=== PATIENT | male | born 1960 | race African-American/Black ===

== ENCOUNTER 2021-03-05 17:47 | Emergency (ER) | payer SELFPAY ==
[~2021-03-05] VITALS: Ht 182.9 cm; Wt 91.0 kg
[2021-03-06] MEDS ORDERED: IBUP-2029 MT (01:14)
[2021-03-06] MEDS ORDERED: IBUPROFEN 600MG TABLET PO ONE (01:15)
[2021-03-06 01:58] VITALS: BP 124/89
== END 2021-03-06 02:28 | disposition home or self-care (01) ==
LOC: ER 17:47
DX: M79.674 Pain in right toe(s) (principal); E11.9 Type 2 diabetes mellitus without complications; J44.1 Chronic obstructive pulmonary disease with (acute) exacerbation; I11.0 Hypertensive heart disease with heart failure; I50.9 Heart failure, unspecified
CPT/HCPCS: 93005; 99283

== ENCOUNTER 2023-02-16 11:22 | Inpatient (IN) | payer OTHER ==
[~2023-02-16] VITALS: Ht 175.3 cm; Wt 68.1 kg
[~2023-02-16 11:22] MED LIST: IBUP-2029 MT
[2023-02-16] MEDS ORDERED: ALBUTEROL (0.083%) 2.5MG/3ML NEB HHN ONE (12:15)
[2023-02-16] MEDS ORDERED: METHYLPREDNISOLONE SOD SUCC 125MG/2ML (ACT-O-VIAL) IV ONE (12:15)
[2023-02-16] MEDS ORDERED: IPRATROPIUM/ALBUTEROL 0.5-3(2.5)MG/3ML NEB HHN ONE (12:15)
[2023-02-16 12:49] LABS: BASOPHILS % 2.1 % (0.0-2.0); DIFFERENTIAL COMMENT 0; EOSINOPHILS % 1.2 % (0.0-5.0); MEAN CORPUSCULAR HEMOGLOBIN 27.8 pg (28.0-32.0); MEAN CORPUSCULAR HGB CONC 27.3 g/dL (31.0-37.0); MEAN CORPUSCULAR VOLUME 101.9 fL (80.0-94.0); MEAN PLATELET VOLUME 7.4 fl (7.4-10.4); MONOCYTES % 10.6 % (2.0-8.0); NEUTROPHILS % 70.1 % (40.0-76.0); PLATELET 321 x1000/uL (130-400); RED BLOOD CELL COUNT 1.33 mill/uL (4.7-6.1); RED CELL DISTRIBUTION WIDTH 20.2 % (11.6-14.6)
[2023-02-16 12:56] LABS: HEMATOCRIT. 13.6 % (42.0-52.0)
[2023-02-16 13:00] LABS: INR 1.2; PROTHROMBIN TIME 12.3 sec (9.6-11.0)
[2023-02-16] MEDS ORDERED: PIPERACILLIN/TAZ 3.375G PREMIX 50 ML IV ONE (13:00)
[2023-02-16 13:04] LABS: HEMOGLOBIN. 3.7 g/dL (14.0-18.0)
[2023-02-16 13:14] LABS: ALANINE AMINOTRANSFERASE 13 IU/L (10-49); ALBUMIN 3.4 g/dL (3.2-4.8); ASPARTATE AMINOTRANSFERASE 19 IU/L (<34); BILIRUBIN TOTAL < 0.2 mg/dL (0.1-1.0); CALCIUM 8.5 mg/dL (8.7-10.4); CARBON DIOXIDE 19 mEq/L (21-32); CHLORIDE 108 mEq/L (98-107); CREATININE 3.2 mg/dL (0.6-1.3); GLUCOSE 200 mg/dL (70-105); POTASSIUM 5.7 mEq/L (3.5-5.1); PROTEIN TOTAL 5.5 g/dL (6.0-8.3); SODIUM 137 mEq/L (136-145)
[2023-02-16 13:23] LABS: UREA NITROGEN BLOOD 104 mg/dL (9-23)
[2023-02-16 13:24] LABS: TROPONIN I HIGH SENSITIVITY 113 ng/L (3.0-53)
[2023-02-16] MEDS ORDERED: INSULIN REGULAR (HUMULIN R) 300UNITS/3ML VIAL IV ONE (13:45)
[2023-02-16] MEDS ORDERED: CALCIUM GLUCONATE 100MG/ML 10ML VIAL IV ONE (13:45)
[2023-02-16] MEDS ORDERED: DEXTROSE 50% WATER 50ML SYRINGE IV ONE (13:45)
[2023-02-16] MEDS ORDERED: SODIUM POLYSTYRENE SULFONATE 15 G/60 ML BOT PO ONE (13:45)
[2023-02-16] MEDS ORDERED: PIPERACILLIN/TAZ 3.375G PREMIX 50 ML IV NR (14:22)
[2023-02-16] MEDS ORDERED: METHYLPREDNISOLONE SOD SUCC 125MG/2ML (ACT-O-VIAL) IV NR (14:22)
[2023-02-16 15:18] LABS: LACTIC ACID 3.6 mmol/L (0.4-2.0)
[2023-02-16] MEDS ORDERED: GABAPENTIN 300MG CAPSULE PO ONE (15:45)
[2023-02-16] MEDS ORDERED: ACETAMINOPHEN 325MG TABLET PO ONE (15:45)
[2023-02-16] MEDS ORDERED: GABAPENTIN 300MG CAPSULE PO NR (16:15)
[2023-02-16] MEDS ORDERED: GABAPENTIN 100MG CAPSULE PO NR ×2 (16:15)
[2023-02-16] MEDS ORDERED: GABAPENTIN 400MG CAPSULE PO NR (16:15)
[2023-02-16 19:03] LABS: TROPONIN I HIGH SENSITIVITY 117 ng/L (3.0-53)
[2023-02-16] MEDS ORDERED: IPRATROPIUM/ALBUTEROL 0.5-3(2.5)MG/3ML NEB HHN PRN (23:34)
[2023-02-17] VITALS (33 sets, daily range): BP systolic 118–160; BP diastolic 84–122; PULSE 96–106; RESP 11–25; TEMP 97.3–97.7; O2SAT 100
[2023-02-17 03:12] LABS: HEMOGLOBIN. 7.7 g/dL (14.0-18.0); MEAN CORPUSCULAR HEMOGLOBIN 30.1 pg (28.0-32.0); MEAN CORPUSCULAR HGB CONC 30.9 g/dL (31.0-37.0); MEAN CORPUSCULAR VOLUME 97.3 fL (80.0-94.0); MEAN PLATELET VOLUME 8.1 fl (7.4-10.4); PLATELET 178 x1000/uL (130-400); RED BLOOD CELL COUNT 2.57 mill/uL (4.7-6.1); RED CELL DISTRIBUTION WIDTH 16.5 % (11.6-14.6); WHITE BLOOD COUNT 4.2 x1000/uL (4.5-11.0)
[2023-02-17 03:26] LABS: ALANINE AMINOTRANSFERASE 16 IU/L (10-49); ALBUMIN 3.4 g/dL (3.2-4.8); ASPARTATE AMINOTRANSFERASE 28 IU/L (<34); BILIRUBIN TOTAL 0.4 mg/dL (0.1-1.0); CALCIUM 8.5 mg/dL (8.7-10.4); CARBON DIOXIDE 15 mEq/L (21-32); CHLORIDE 110 mEq/L (98-107); CREATININE 3.4 mg/dL (0.6-1.3); GLUCOSE 257 mg/dL (70-105); PROTEIN TOTAL 5.6 g/dL (6.0-8.3); SODIUM 136 mEq/L (136-145)
[2023-02-17 03:28] LABS: DIFFERENTIAL COMMENT 1
[2023-02-17 03:31] LABS: POTASSIUM 6.9 mEq/L (3.5-5.1); UREA NITROGEN BLOOD 112 mg/dL (9-23)
[2023-02-17 04:34] LABS: PLATELET ESTIMATE NORMAL
[2023-02-17] MEDS ORDERED: SODIUM BICARBONATE 8.4% 1 MEQ/ML 50ML SYR IV NR ×2 (05:00→11:25)
[2023-02-17] MEDS ORDERED: SODIUM POLYSTYRENE SULFONATE 15 G/60 ML BOT PO NR ×2 (05:00→11:30)
[2023-02-17] MEDS ORDERED: DEXTROSE 50% WATER 50ML SYRINGE IV NR ×2 (05:00→11:25)
[2023-02-17] MEDS ORDERED: INSULIN REGULAR (HUMULIN R) 300UNITS/3ML VIAL IV NR ×2 (05:00→11:25)
[2023-02-17 08:04] LABS: BG BASE EXCESS -12.9 mmol/L (-2.0-2.0); BG DEOXYHEMOGLOBIN 3.9 % (0.0-5.0); BG FRACTION INSPIRED OXYGEN 36; BG HCO3 ACT 12.1 mmol/L (22.0-26.0); BG METHEMOGLOBIN 0.3 % (0.0-1.5); BG OXYHEMOGLOBIN 94.8 % (94.0-97.0); BG PCO2 24.7 mmHg (35.0-45.0); BG PH 7.308 (7.350-7.450); BG PO2 88.8 mmHg (75.0-100.0); BG SAMPLE SITE RIGHT RADIAL; BG TOTAL HEMOGLOBIN 7.7 g/dL (12.0-18.0); BG VENT MODE NASAL CANNULA
[2023-02-17] MEDS: FUROSEMIDE 40MG/4ML VIAL IVP SCH ×2 (09:12→16:32)
[2023-02-17 09:33] LABS: HEMOGLOBIN. 8.2 g/dL (14.0-18.0); MEAN CORPUSCULAR HGB CONC 31.6 g/dL (31.0-37.0); PLATELET 311 x1000/uL (130-400); RED BLOOD CELL COUNT 2.74 mill/uL (4.7-6.1); RED CELL DISTRIBUTION WIDTH 16.4 % (11.6-14.6); WHITE BLOOD COUNT 6.6 x1000/uL (4.5-11.0)
[2023-02-17 09:36] LABS: DIFFERENTIAL COMMENT 1
[2023-02-17 09:41] LABS: CALCIUM 8.6 mg/dL (8.7-10.4); CREATININE 3.5 mg/dL (0.6-1.3)
[2023-02-17] MEDS ORDERED: NALOXONE HCL 0.4MG/ML VIAL IV PRN (09:45)
[2023-02-17 10:11] LABS: POTASSIUM 6.2 mEq/L (3.5-5.1)
[2023-02-17] MEDS ORDERED: IPRATROPIUM/ALBUTEROL 0.5-3(2.5)MG/3ML NEB HHN PRN (10:45)
[2023-02-17] MEDS ORDERED: ONDANSETRON HCL 4MG/2ML INJ IV PRN (10:45)
[2023-02-17] MEDS ORDERED: ACETAMINOPHEN 325MG TABLET PO PRN ×2 (10:45)
[2023-02-17] MEDS ORDERED: DOCUSATE SODIUM 100MG CAPSULE PO PRN (10:45)
[2023-02-17] MEDS: HYDROCODONE/ACETAMINOPHEN 10/325MG TABLET PO PRN (11:05)
[2023-02-17] MEDS ORDERED: LIDOCAINE HCL 1% 10 MG/ML 10ML VIAL ONE (11:17)
[2023-02-17 12:02] LABS: KETONES URINE NEGATIVE (NEGATIVE)
[2023-02-17] MEDS ORDERED: AMLODIPINE 5MG TABLET PO NR (12:30)
[2023-02-17 13:46] LABS: *AMPHETAMINES SCREEN URINE NEGATIVE (NEGATIVE); *BARBITURATES SCREEN URINE NEGATIVE (NEGATIVE); *BENZODIAZEPINES SCREEN URINE NEGATIVE (NEGATIVE); *COCAINE SCREEN URINE PRESUMPTIVE POSITIVE (NEGATIVE); ECSTASY MDMA SCREEN URINE NEGATIVE (NEGATIVE); METHADONE URINE SCREEN Neg (NEGATIVE); OPIATES URINE SCREEN NEGATIVE (NEGATIVE); PHENCYCLIDINE URINE SCREEN NEGATIVE (NEGATIVE)
[2023-02-17 14:19] LABS: CLARITY URINE CLEAR (CLEAR); COLOR URINE YELLOW (YELLOW); PROTEIN URINE 2+ (NEGATIVE)
[2023-02-17 14:20] LABS: GLUCOSE URINE NEGATIVE (NEGATIVE); NITRITE URINE NEGATIVE (NEGATIVE); OCCULT BLOOD URINE 1+ (NEGATIVE); PH URINE 5.5 (4.5-8.0); SPECIFIC GRAVITY URINE 1.015 (1.005-1.030)
[2023-02-17 14:21] LABS: LEUKOCYTE ESTERASE URINE NEGATIVE (NEGATIVE); UROBILINOGEN URINE 0.2 E.U./dL (0.2-1.0)
[2023-02-17 14:23] LABS: BACTERIA URINE RARE; RBC URINE 0-2 /hpf (0-2); SQUAMOUS EPITHELIAL CELL URINE RARE /lpf (RARE/1+); YEAST URINE NONE SEEN
[2023-02-17 17:19] LABS: PLATELET ESTIMATE NORMAL
[2023-02-17 19:53] LABS: HEPATITIS A AB IGM NEGATIVE (Negative); HEPATITIS B SURFACE ANTIGEN NEGATIVE (Negative); HEPATITIS C AB NON REACTIVE (Neg) (Negative)
[2023-02-17] MEDS: AMLODIPINE 5MG TABLET PO SCH (21:08)
[2023-02-17] MEDS ORDERED: DEXTROSE 50% WATER 50ML SYRINGE IV PRN (23:00)
[2023-02-17] MEDS ORDERED: VANCOMYCIN 1G PREMIX 200 ML IV NR (23:30)
[2023-02-17] MEDS: PANTOPRAZOLE SODIUM 40 MG/VIAL IV SCH (23:36)
[2023-02-17] MEDS: DIPHENHYDRAMINE 25MG CAPSULE PO PRN (23:36)
[2023-02-18] VITALS (66 sets, daily range): BP systolic 103–147; BP diastolic 73–110; PULSE 81–104; RESP 9–28; TEMP 95.6–98.2; O2SAT 100
[2023-02-18 00:51] LABS: FERRITIN 163 ng/mL (22-322); FOLIC ACID (FOLATE) SERUM 10.36 ng/mL (>5.38); VITAMIN B12 SERUM 744 pg/mL (211-911)
[2023-02-18] MEDS: PIPERACILLIN/TAZOBACTAM 3.375 G in DEXTROSE 5% WATER 50 ML IV SCH ×3 (00:52→21:11)
[2023-02-18 01:58] LABS: IRON 28 ug/dL (65-175); LACTATE DEHYDROGENASE 325 IU/L (120-246); TOTAL IRON BINDING CAPACITY 269 ug/dl (250-425)
[2023-02-18] MEDS: HYDROCODONE/ACETAMINOPHEN 10/325MG TABLET PO PRN ×3 (03:16→23:27)
[2023-02-18 06:08] LABS: HEMATOCRIT. 22.2 % (42.0-52.0); HEMOGLOBIN. 7.1 g/dL (14.0-18.0); MEAN CORPUSCULAR HEMOGLOBIN 30.3 pg (28.0-32.0); MEAN CORPUSCULAR VOLUME 94.7 fL (80.0-94.0); PLATELET 237 x1000/uL (130-400); RED BLOOD CELL COUNT 2.34 mill/uL (4.7-6.1); RED CELL DISTRIBUTION WIDTH 17.1 % (11.6-14.6)
[2023-02-18 06:33] LABS: ALANINE AMINOTRANSFERASE 17 IU/L (10-49); ALBUMIN 2.9 g/dL (3.2-4.8); ASPARTATE AMINOTRANSFERASE 23 IU/L (<34); BILIRUBIN TOTAL 0.2 mg/dL (0.1-1.0); CALCIUM 7.7 mg/dL (8.7-10.4); CARBON DIOXIDE 29 mEq/L (21-32); CHLORIDE 107 mEq/L (98-107); CREATININE 2.5 mg/dL (0.6-1.3); GLUCOSE 147 mg/dL (70-105); PHOSPHORUS 4.6 mg/dL (2.5-4.9); POTASSIUM 4.5 mEq/L (3.5-5.1); PROTEIN TOTAL 5.5 g/dL (6.0-8.3); SODIUM 143 mEq/L (136-145); UREA NITROGEN BLOOD 66 mg/dL (9-23)
[2023-02-18 07:23] LABS: DIFFERENTIAL COMMENT 1
[2023-02-18] MEDS: BLOOD SUGAR DIAGNOSTIC STRIP TEST SCH ×4 (07:50→21:14)
[2023-02-18] MEDS: INSULIN LISPRO 100 UNITS/ML SUBCUT SCH ×4 (08:20→21:00)
[2023-02-18] MEDS: BUDESONIDE 0.5MG/2ML NEB HHN SCH ×2 (08:57→21:10)
[2023-02-18] MEDS: IPRATROPIUM/ALBUTEROL 0.5-3(2.5)MG/3ML NEB HHN SCH ×4 (08:58→21:10)
[2023-02-18] MEDS: AMLODIPINE 5MG TABLET PO SCH ×2 (09:00→21:00)
[2023-02-18] MEDS: PANTOPRAZOLE SODIUM 40 MG/VIAL IV SCH ×2 (09:00→17:51)
[2023-02-18] MEDS: FUROSEMIDE 40MG/4ML VIAL IVP SCH ×2 (09:00→17:43)
[2023-02-18 09:13] LABS: TROPONIN I HIGH SENSITIVITY 185 ng/L (3.0-53)
[2023-02-18] MEDS: CLONIDINE 0.1MG TABLET PO PRN (09:30)
[2023-02-18] MEDS ORDERED: IRON SUCROSE COMPLEX 100 MG/5 ML ML IV NR (12:00)
[2023-02-18] MEDS: NITROGLYCERIN OINT 1GM/INCH UDPKT TD SCH ×2 (17:43→21:00)
[2023-02-18 17:57] LABS: PLATELET ESTIMATE NORMAL
[2023-02-18 17:58] LABS: ANISOCYTOSIS 1+
[2023-02-19] VITALS (12 sets, daily range): BP systolic 115–132; BP diastolic 69–93; PULSE 87–104; RESP 11–20; TEMP 97.8–98.6; O2SAT 99
[2023-02-19] MEDS: BUDESONIDE 0.5MG/2ML NEB HHN SCH ×3 (00:28→21:15)
[2023-02-19] MEDS: IPRATROPIUM/ALBUTEROL 0.5-3(2.5)MG/3ML NEB HHN SCH ×4 (01:24→21:15)
[2023-02-19] MEDS: BLOOD SUGAR DIAGNOSTIC STRIP TEST SCH ×4 (06:44→21:26)
[2023-02-19] MEDS: NITROGLYCERIN OINT 1GM/INCH UDPKT TD SCH ×3 (06:51→21:33)
[2023-02-19 08:04] LABS: CALCIUM 7.2 mg/dL (8.7-10.4); CARBON DIOXIDE 29 mEq/L (21-32); CHLORIDE 107 mEq/L (98-107); CREATININE 3.2 mg/dL (0.6-1.3); GLUCOSE 154 mg/dL (70-105); PHOSPHORUS 4.4 mg/dL (2.5-4.9); POTASSIUM 4.3 mEq/L (3.5-5.1); SODIUM 144 mEq/L (136-145); UREA NITROGEN BLOOD 66 mg/dL (9-23)
[2023-02-19] MEDS: PANTOPRAZOLE SODIUM 40 MG/VIAL IV SCH ×2 (08:41→17:19)
[2023-02-19] MEDS: FUROSEMIDE 40MG/4ML VIAL IVP SCH ×2 (08:41→17:19)
[2023-02-19 08:44] LABS: BASOPHILS % 0.7 % (0.0-2.0); DIFFERENTIAL COMMENT 0; EOSINOPHILS % 0.7 % (0.0-5.0); LYMPHOCYTES % 14.2 % (20.0-50.0); MEAN CORPUSCULAR HGB CONC 32.6 g/dL (31.0-37.0); MEAN CORPUSCULAR VOLUME 92.2 fL (80.0-94.0); MEAN PLATELET VOLUME 8.2 fl (7.4-10.4); MONOCYTES % 12.2 % (2.0-8.0); NEUTROPHILS % 72.2 % (40.0-76.0); PLATELET 205 x1000/uL (130-400); RED BLOOD CELL COUNT 1.99 mill/uL (4.7-6.1); RED CELL DISTRIBUTION WIDTH 16.9 % (11.6-14.6); WHITE BLOOD COUNT 6.7 x1000/uL (4.5-11.0)
[2023-02-19] MEDS: INSULIN LISPRO 100 UNITS/ML SUBCUT SCH ×4 (08:46→21:28)
[2023-02-19 08:48] LABS: HEMATOCRIT. 18.4 % (42.0-52.0)
[2023-02-19] MEDS: HYDROCODONE/ACETAMINOPHEN 10/325MG TABLET PO PRN ×2 (09:08→20:55)
[2023-02-19] MEDS: AMLODIPINE 5MG TABLET PO SCH ×2 (09:09→20:54)
[2023-02-19] MEDS ORDERED: VANCOMYCIN 500MG PREMIX 100 ML IV NR (13:00)
[2023-02-19 17:16] LABS: HEMATOCRIT 23.9 % (42.0-52.0); HEMOGLOBIN 7.5 g/dL (14.0-18.0)
[2023-02-19] MEDS: FERROUS SULFATE 325MG TABLET PO SCH (17:19)
[2023-02-19] MEDS: ASCORBIC ACID 500 MG TABLET PO SCH (17:19)
[2023-02-19] MEDS: DIPHENHYDRAMINE 25MG CAPSULE PO PRN (21:34)
[2023-02-20] VITALS: BP 127/83; PULSE 88; RESP 10; TEMP 97.8
[2023-02-20 04:00] VITALS: BP 117/77; PULSE 95; RESP 18; TEMP 98
[2023-02-20] MEDS: NITROGLYCERIN OINT 1GM/INCH UDPKT TD SCH ×3 (06:22→23:13)
[2023-02-20] MEDS: BLOOD SUGAR DIAGNOSTIC STRIP TEST SCH ×2 (06:25→11:50)
[2023-02-20] MEDS: INSULIN LISPRO 100 UNITS/ML SUBCUT SCH ×2 (06:25→12:20)
[2023-02-20 08:00] VITALS: BP 131/98; PULSE 100; RESP 20; TEMP 98.6
[2023-02-20] MEDS: IPRATROPIUM/ALBUTEROL 0.5-3(2.5)MG/3ML NEB HHN SCH ×3 (08:46→12:00)
[2023-02-20] MEDS: BUDESONIDE 0.5MG/2ML NEB HHN SCH (08:47)
[2023-02-20 08:48] VITALS: PULSE 98; RESP 24; O2SAT 95
[2023-02-20] MEDS: FUROSEMIDE 40MG/4ML VIAL IVP SCH ×2 (09:38→17:16)
[2023-02-20] MEDS: PANTOPRAZOLE SODIUM 40 MG/VIAL IV SCH ×2 (09:38→17:16)
[2023-02-20] MEDS: ASCORBIC ACID 500 MG TABLET PO SCH ×2 (09:39→17:16)
[2023-02-20] MEDS: AMLODIPINE 5MG TABLET PO SCH ×2 (09:39→20:35)
[2023-02-20] MEDS: FERROUS SULFATE 325MG TABLET PO SCH ×2 (09:39→17:21)
[2023-02-20] MEDS: DIPHENHYDRAMINE 25MG CAPSULE PO PRN ×2 (09:55→17:22)
[2023-02-20] MEDS: HYDROCODONE/ACETAMINOPHEN 10/325MG TABLET PO PRN ×2 (09:55→17:20)
[2023-02-20 11:11] LABS: BASOPHILS % 0.9 % (0.0-2.0); EOSINOPHILS % 1.8 % (0.0-5.0); HEMATOCRIT. 25.6 % (42.0-52.0); HEMOGLOBIN. 7.8 g/dL (14.0-18.0); LYMPHOCYTES % 9.6 % (20.0-50.0); MEAN CORPUSCULAR HEMOGLOBIN 28.9 pg (28.0-32.0); MEAN CORPUSCULAR HGB CONC 30.5 g/dL (31.0-37.0); MEAN CORPUSCULAR VOLUME 94.9 fL (80.0-94.0); MEAN PLATELET VOLUME 8.1 fl (7.4-10.4); NEUTROPHILS % 79.7 % (40.0-76.0); PLATELET 223 x1000/uL (130-400); WHITE BLOOD COUNT 7.9 x1000/uL (4.5-11.0)
[2023-02-20 11:39] LABS: CREATININE 3.3 mg/dL (0.6-1.3); POTASSIUM 3.9 mEq/L (3.5-5.1)
[2023-02-20 12:00] VITALS: BP 129/112; PULSE 99; RESP 14; TEMP 98.2
[2023-02-20 16:00] VITALS: BP 128/89; PULSE 101; RESP 12; TEMP 98.2
[2023-02-20] MEDS: HYDROXYZINE 25MG TABLET PO PRN (20:36)
[2023-02-21 04:00] VITALS: BP 128/102; PULSE 63; RESP 16; TEMP 98.2
[2023-02-21] MEDS: NITROGLYCERIN OINT 1GM/INCH UDPKT TD SCH ×3 (06:44→23:03)
[2023-02-21 08:00] VITALS: BP 139/95; PULSE 104; TEMP 98.5
[2023-02-21] MEDS: ASCORBIC ACID 500 MG TABLET PO SCH ×2 (08:40→16:20)
[2023-02-21] MEDS: PANTOPRAZOLE SODIUM 40 MG/VIAL IV SCH ×2 (08:41→16:20)
[2023-02-21] MEDS: AMLODIPINE 5MG TABLET PO SCH ×2 (08:41→20:28)
[2023-02-21] MEDS: FERROUS SULFATE 325MG TABLET PO SCH ×2 (08:41→16:20)
[2023-02-21] MEDS: FUROSEMIDE 40MG/4ML VIAL IVP SCH ×2 (08:41→16:21)
[2023-02-21] MEDS: HYDROCODONE/ACETAMINOPHEN 10/325MG TABLET PO PRN ×2 (08:53→23:33)
[2023-02-21] MEDS: HYDROXYZINE 25MG TABLET PO PRN (08:53)
[2023-02-21] MEDS: IPRATROPIUM/ALBUTEROL 0.5-3(2.5)MG/3ML NEB HHN SCH ×3 (09:26→18:00)
[2023-02-21 12:00] VITALS: BP 138/95; PULSE 103; RESP 18; TEMP 97.5
[2023-02-21 12:01] LABS: BASOPHILS % 0.8 % (0.0-2.0); EOSINOPHILS % 2.5 % (0.0-5.0); HEMATOCRIT. 27.5 % (42.0-52.0); HEMOGLOBIN. 8.7 g/dL (14.0-18.0); LYMPHOCYTES % 10.8 % (20.0-50.0); MEAN CORPUSCULAR HEMOGLOBIN 29.3 pg (28.0-32.0); MEAN CORPUSCULAR HGB CONC 31.7 g/dL (31.0-37.0); MEAN CORPUSCULAR VOLUME 92.5 fL (80.0-94.0); MONOCYTES % 8.4 % (2.0-8.0); NEUTROPHILS % 77.5 % (40.0-76.0); PLATELET 238 x1000/uL (130-400); RED BLOOD CELL COUNT 2.98 mill/uL (4.7-6.1); RED CELL DISTRIBUTION WIDTH 17.1 % (11.6-14.6); WHITE BLOOD COUNT 7.1 x1000/uL (4.5-11.0)
[2023-02-21 12:10] LABS: CALCIUM 7.5 mg/dL (8.7-10.4); CREATININE 3.3 mg/dL (0.6-1.3); POTASSIUM 3.8 mEq/L (3.5-5.1)
[2023-02-21 16:00] VITALS: BP 141/99; PULSE 103; RESP 20; TEMP 97.9
[2023-02-21 20:00] VITALS: BP 135/94; PULSE 88; RESP 21; TEMP 98.5
[2023-02-21] MEDS: DIPHENHYDRAMINE 25MG CAPSULE PO PRN (23:33)
[2023-02-22] VITALS (7 sets, daily range): BP systolic 125–151; BP diastolic 78–105; PULSE 99–105; RESP 15–25; TEMP 97.6–99.3
[2023-02-22] MEDS: DIPHENHYDRAMINE 25MG CAPSULE PO PRN (03:09)
[2023-02-22 03:44] LABS: BASOPHILS % 0.8 % (0.0-2.0); EOSINOPHILS % 3.1 % (0.0-5.0); HEMATOCRIT. 29.6 % (42.0-52.0); HEMOGLOBIN. 9.6 g/dL (14.0-18.0); LYMPHOCYTES % 15.3 % (20.0-50.0); MEAN CORPUSCULAR HEMOGLOBIN 29.4 pg (28.0-32.0); MEAN CORPUSCULAR HGB CONC 32.4 g/dL (31.0-37.0); MEAN CORPUSCULAR VOLUME 90.7 fL (80.0-94.0); MONOCYTES % 8.3 % (2.0-8.0); NEUTROPHILS % 72.5 % (40.0-76.0); PLATELET 264 x1000/uL (130-400); RED BLOOD CELL COUNT 3.26 mill/uL (4.7-6.1); RED CELL DISTRIBUTION WIDTH 16.8 % (11.6-14.6); WHITE BLOOD COUNT 7.5 x1000/uL (4.5-11.0)
[2023-02-22 03:52] LABS: INR 1.1; PROTHROMBIN TIME 11.7 sec (9.6-11.0)
[2023-02-22 04:03] LABS: CALCIUM 7.5 mg/dL (8.7-10.4); CREATININE 3.1 mg/dL (0.6-1.3); POTASSIUM 3.5 mEq/L (3.5-5.1)
[2023-02-22] MEDS: NITROGLYCERIN OINT 1GM/INCH UDPKT TD SCH ×3 (06:39→21:24)
[2023-02-22] MEDS: IPRATROPIUM/ALBUTEROL 0.5-3(2.5)MG/3ML NEB HHN SCH ×4 (09:49→18:00)
[2023-02-22] MEDS ORDERED: METOCLOPRAMIDE HCL 10MG/2ML VIAL IV SCH ×2 (10:00→12:00)
[2023-02-22] MEDS ORDERED: POTASSIUM CHLORIDE 20MEQ/PACKET PO NR (10:00)
[2023-02-22] MEDS ORDERED: BISACODYL 5MG TABLET PO SCH (10:00)
[2023-02-22] MEDS: FUROSEMIDE 40MG/4ML VIAL IVP SCH ×2 (10:20→18:27)
[2023-02-22] MEDS: ASCORBIC ACID 500 MG TABLET PO SCH ×2 (10:21→18:27)
[2023-02-22] MEDS: FERROUS SULFATE 325MG TABLET PO SCH ×2 (10:21→18:27)
[2023-02-22] MEDS: PANTOPRAZOLE SODIUM 40 MG/VIAL IV SCH ×2 (10:22→18:27)
[2023-02-22] MEDS: AMLODIPINE 5MG TABLET PO SCH ×2 (10:22→21:23)
[2023-02-22] MEDS ORDERED: SORBITOL 70% SOLN 30ML PO NR (10:30)
[2023-02-22] MEDS ORDERED: SORBITOL 70% SOLN 30ML PO SCH (14:30)
[2023-02-23] VITALS: BP 132/96; PULSE 103; RESP 12; TEMP 98.8
[2023-02-23] MEDS: IPRATROPIUM/ALBUTEROL 0.5-3(2.5)MG/3ML NEB HHN SCH
[2023-02-23 03:14] VITALS: BP 128/93; PULSE 100; RESP 23
[2023-02-23] MEDS: HYDROCODONE/ACETAMINOPHEN 10/325MG TABLET PO PRN (03:20)
[2023-02-23] MEDS: DIPHENHYDRAMINE 25MG CAPSULE PO PRN (03:21)
[2023-02-23 03:54] LABS: BASOPHILS % 1.3 % (0.0-2.0); EOSINOPHILS % 3.4 % (0.0-5.0); HEMATOCRIT. 30.5 % (42.0-52.0); HEMOGLOBIN. 9.7 g/dL (14.0-18.0); LYMPHOCYTES % 11.8 % (20.0-50.0); MEAN CORPUSCULAR HEMOGLOBIN 29.3 pg (28.0-32.0); MEAN CORPUSCULAR HGB CONC 31.8 g/dL (31.0-37.0); MEAN CORPUSCULAR VOLUME 92.1 fL (80.0-94.0); MEAN PLATELET VOLUME 8.1 fl (7.4-10.4); MONOCYTES % 10.5 % (2.0-8.0); PLATELET 279 x1000/uL (130-400); RED BLOOD CELL COUNT 3.31 mill/uL (4.7-6.1); RED CELL DISTRIBUTION WIDTH 17.1 % (11.6-14.6); WHITE BLOOD COUNT 7.1 x1000/uL (4.5-11.0)
[2023-02-23 03:56] LABS: CALCIUM 7.7 mg/dL (8.7-10.4); CREATININE 3.1 mg/dL (0.6-1.3); INR 1.2; POTASSIUM 3.5 mEq/L (3.5-5.1); PROTHROMBIN TIME 12.3 sec (9.6-11.0)
[2023-02-23 04:00] VITALS: PULSE 93; RESP 15; TEMP 98.8
[2023-02-23] MEDS: NITROGLYCERIN OINT 1GM/INCH UDPKT TD SCH ×4 (07:08→21:43)
[2023-02-23] MEDS: PANTOPRAZOLE SODIUM 40 MG/VIAL IV SCH ×2 (09:02→17:00)
[2023-02-23] MEDS: ASCORBIC ACID 500 MG TABLET PO SCH ×2 (09:02→18:38)
[2023-02-23] MEDS: FERROUS SULFATE 325MG TABLET PO SCH ×2 (09:02→18:38)
[2023-02-23] MEDS: FUROSEMIDE 40MG/4ML VIAL IVP SCH ×2 (09:03→18:38)
[2023-02-23] MEDS: AMLODIPINE 5MG TABLET PO SCH ×2 (09:03→21:36)
[2023-02-23] MEDS ORDERED: ETOMIDATE 2MG/ML 10ML VIAL IV ONE (09:36)
[2023-02-23] MEDS ORDERED: PHENYLEPHRINE HCL 10 MG/ML 1ML (IV VIAL) IV ONE (09:37)
[2023-02-23] MEDS ORDERED: SIMETHICONE 40 MG/0.6 ML 15ML ONE (09:50)
[2023-02-23 12:00] VITALS: PULSE 80; RESP 18; TEMP 99
[2023-02-23 15:13] LABS: CALCIUM 8.2 mg/dL (8.7-10.4); CREATININE 2.9 mg/dL (0.6-1.3); POTASSIUM 3.9 mEq/L (3.5-5.1)
[2023-02-23 16:00] VITALS: PULSE 97; RESP 20; TEMP 98.6
[2023-02-23 20:00] VITALS: BP 144/96; PULSE 102; RESP 24; TEMP 97.7
[2023-02-24] VITALS: BP 134/88; PULSE 100; RESP 20; TEMP 99.2
[2023-02-24 04:00] VITALS: BP 136/93; PULSE 100; RESP 20; TEMP 98.9
[2023-02-24] MEDS: NITROGLYCERIN OINT 1GM/INCH UDPKT TD SCH ×3 (05:57→21:36)
[2023-02-24 08:00] VITALS: BP 136/93; PULSE 105; RESP 18; TEMP 99
[2023-02-24] MEDS: FERROUS SULFATE 325MG TABLET PO SCH ×2 (08:20→17:32)
[2023-02-24] MEDS: FUROSEMIDE 40MG/4ML VIAL IVP SCH ×2 (08:20→17:32)
[2023-02-24] MEDS: ASCORBIC ACID 500 MG TABLET PO SCH ×2 (08:20→17:32)
[2023-02-24] MEDS: PANTOPRAZOLE SODIUM 40 MG/VIAL IV SCH ×2 (08:21→17:32)
[2023-02-24] MEDS: AMLODIPINE 5MG TABLET PO SCH ×2 (08:21→21:36)
[2023-02-24 09:43] LABS: BASOPHILS % 1.1 % (0.0-2.0); EOSINOPHILS % 2.4 % (0.0-5.0); HEMATOCRIT. 29.5 % (42.0-52.0); HEMOGLOBIN. 9.5 g/dL (14.0-18.0); LYMPHOCYTES % 10.1 % (20.0-50.0); MEAN CORPUSCULAR HEMOGLOBIN 29.4 pg (28.0-32.0); MEAN CORPUSCULAR HGB CONC 32.3 g/dL (31.0-37.0); MEAN CORPUSCULAR VOLUME 91.1 fL (80.0-94.0); MEAN PLATELET VOLUME 8.3 fl (7.4-10.4); MONOCYTES % 8.2 % (2.0-8.0); NEUTROPHILS % 78.2 % (40.0-76.0); PLATELET 256 x1000/uL (130-400); RED BLOOD CELL COUNT 3.24 mill/uL (4.7-6.1); WHITE BLOOD COUNT 7.9 x1000/uL (4.5-11.0)
[2023-02-24 12:00] VITALS: BP 148/100; PULSE 71; RESP 22; TEMP 97.3
[2023-02-24] MEDS ORDERED: NALOXONE HCL 0.4MG/ML VIAL IV PRN (12:45)
[2023-02-24] MEDS: CLONIDINE 0.1MG TABLET PO PRN (12:58)
[2023-02-24] MEDS: HYDROCODONE/ACETAMINOPHEN 10/325MG TABLET PO PRN ×2 (14:26→23:27)
[2023-02-24] MEDS: DIPHENHYDRAMINE 25MG CAPSULE PO PRN (14:26)
[2023-02-24 14:28] LABS: BG BASE EXCESS -1.3 mmol/L (-2.0-2.0); BG CARBOXYHEMOGLOBIN 1.1 % (0.5-1.5); BG DEOXYHEMOGLOBIN 15.3 % (0.0-5.0); BG HCO3 ACT 22.3 mmol/L (22.0-26.0); BG METHEMOGLOBIN 0.4 % (0.0-1.5); BG OXYGEN SATURATION 84.5 % (92.0-98.5); BG OXYHEMOGLOBIN 83.2 % (94.0-97.0); BG PCO2 34.1 mmHg (35.0-45.0); BG PH 7.433 (7.350-7.450); BG PO2 46.2 mmHg (75.0-100.0); BG SAMPLE SITE RIGHT BRACHIAL; BG TOTAL HEMOGLOBIN 13.4 g/dL (12.0-18.0); BG VENT MODE ROOM AIR
[2023-02-24 16:00] VITALS: BP 121/77; PULSE 87; RESP 15; TEMP 97.5
[2023-02-24 20:00] VITALS: BP 140/95; PULSE 97; RESP 20; TEMP 98.2
[2023-02-24] MEDS: HYDROXYZINE 25MG TABLET PO PRN (23:24)
[2023-02-25] VITALS: BP 117/74; PULSE 93; RESP 16; TEMP 98.3
[2023-02-25 03:43] VITALS: BP 127/91; PULSE 92; RESP 19; TEMP 97.9
[2023-02-25] MEDS: NITROGLYCERIN OINT 1GM/INCH UDPKT TD SCH ×2 (05:45→14:42)
[2023-02-25] MEDS: HYDROCODONE/ACETAMINOPHEN 10/325MG TABLET PO PRN (05:53)
[2023-02-25 08:00] VITALS: BP 129/93; PULSE 95; RESP 13; TEMP 98.2
[2023-02-25] MEDS: FERROUS SULFATE 325MG TABLET PO SCH ×2 (08:03→17:03)
[2023-02-25] MEDS: PANTOPRAZOLE SODIUM 40 MG/VIAL IV SCH ×2 (08:21→17:00)
[2023-02-25] MEDS: FUROSEMIDE 40MG/4ML VIAL IVP SCH ×2 (08:21→17:00)
[2023-02-25] MEDS: ASCORBIC ACID 500 MG TABLET PO SCH ×2 (08:21→17:00)
[2023-02-25] MEDS: AMLODIPINE 5MG TABLET PO SCH (08:24)
[2023-02-25 09:11] LABS: BASOPHILS % 2.3 % (0.0-2.0); EOSINOPHILS % 3.5 % (0.0-5.0); HEMATOCRIT. 30.6 % (42.0-52.0); HEMOGLOBIN. 9.8 g/dL (14.0-18.0); LYMPHOCYTES % 21.2 % (20.0-50.0); MEAN CORPUSCULAR HEMOGLOBIN 29.7 pg (28.0-32.0); MEAN CORPUSCULAR HGB CONC 32.1 g/dL (31.0-37.0); MEAN CORPUSCULAR VOLUME 92.7 fL (80.0-94.0); MEAN PLATELET VOLUME 8.2 fl (7.4-10.4); MONOCYTES % 8.4 % (2.0-8.0); NEUTROPHILS % 64.6 % (40.0-76.0); PLATELET 246 x1000/uL (130-400); RED CELL DISTRIBUTION WIDTH 16.8 % (11.6-14.6); WHITE BLOOD COUNT 6.9 x1000/uL (4.5-11.0)
[2023-02-25 10:36] LABS: CALCIUM 8.4 mg/dL (8.7-10.4); CREATININE 2.8 mg/dL (0.6-1.3); POTASSIUM 4.3 mEq/L (3.5-5.1)
[2023-02-25 12:00] VITALS: BP 131/92; PULSE 101; RESP 23; TEMP 97.8
[2023-02-25] MEDS ORDERED: FURO40TA5 MT (13:32)
[2023-02-25] MEDS ORDERED: PANT40TA51 MT (13:32)
[2023-02-25] MEDS ORDERED: FERR-63 PO (13:32)
[2023-02-25] MEDS ORDERED: AMLO5TAB88 PO (13:32)
[2023-02-25 16:00] VITALS: BP 126/83; PULSE 95; PULSE 96; RESP 25; RESP 26; TEMP 98
[2023-02-25 16:24] VITALS: BP 137/94; PULSE 101; TEMP 97.8; O2SAT 95
== END 2023-02-25 18:10 | disposition home or self-care (01) | DRG 720 ==
LOC: ER 11:22 → EDBEDREQ 13:11 → EDBEDREQTM 17:24 → EDBEDREQSVC 17:24 → MICUSO 22:44 → CVICU 02-17 14:51 → 3WST 02-18 22:47
PROVIDERS: ADMIT Internal Medicine; ATTEND Internal Medicine
PROC: 30233N1 Transfusion of Nonautologous Red Blood Cells into Peripheral Vein, Percutaneous Approach (ICD-10-PCS; 2023-02-16)
PROC: 02HV33Z Insertion of Infusion Device into Superior Vena Cava, Percutaneous Approach (ICD-10-PCS; 2023-02-17)
PROC: B548ZZA Ultrasonography of Superior Vena Cava, Guidance (ICD-10-PCS; 2023-02-17)
PROC: 5A1D70Z Performance of Urinary Filtration, Intermittent, Less than 6 Hours Per Day (ICD-10-PCS; 2023-02-17)
PROC: 0DB58ZX Excision of Esophagus, Via Natural or Artificial Opening Endoscopic, Diagnostic (ICD-10-PCS; principal; 2023-02-23)
PROC: 0DB78ZX Excision of Stomach, Pylorus, Via Natural or Artificial Opening Endoscopic, Diagnostic (ICD-10-PCS; 2023-02-23)
DX: A41.9 Sepsis, unspecified organism (principal); J96.01 Acute respiratory failure with hypoxia; I50.23 Acute on chronic systolic (congestive) heart failure; I21.A1 Myocardial infarction type 2; E87.20 Acidosis, unspecified; N17.9 Acute kidney failure, unspecified; J18.9 Pneumonia, unspecified organism; N18.6 End stage renal disease; D63.8 Anemia in other chronic diseases classified elsewhere; I42.0 Dilated cardiomyopathy; G89.29 Other chronic pain; M62.82 Rhabdomyolysis; E87.5 Hyperkalemia; I13.2 Hypertensive heart and chronic kidney disease with heart failure and with stage 5 chronic kidney disease, or end stage renal disease; Z20.822 Contact with and (suspected) exposure to COVID-19; K44.9 Diaphragmatic hernia without obstruction or gangrene; E11.22 Type 2 diabetes mellitus with diabetic chronic kidney disease; K22.10 Ulcer of esophagus without bleeding; F41.9 Anxiety disorder, unspecified; F10.10 Alcohol abuse, uncomplicated; F14.10 Cocaine abuse, uncomplicated; Z99.2 Dependence on renal dialysis; Z87.891 Personal history of nicotine dependence; Z76.5 Malingerer [conscious simulation]; Z87.820 Personal history of traumatic brain injury; Z99.81 Dependence on supplemental oxygen; Z79.899 Other long term (current) drug therapy; J44.9 Chronic obstructive pulmonary disease, unspecified
CPT/HCPCS: 36415; 36556; 36600; 71045; 76770; 76937; 80048; 80053; 80202; 80305; 81003; 82270; 82375; 82550; 82607; 82728; 82746; 82805; 82962; 83010; 83036; 83540; 83550; 83605; 83615; 83735; 83880; 84100; 84145; 84484; 85014; 85018; 85025; 85044; 86705; 86709; 86850; 86900; 86920; 87340; 87426; 87804; 88305; 90935; 93005; 93306; 94640; 99285; C1752; C9113; C9803; J0610; J1815; J1940; J2370; J2405; J2543; J2765; J2930; J3370; J3490; J7060; J7626; P9016; Q0163

== ENCOUNTER 2023-10-18 16:49 | Inpatient (IN) | payer OTHER ==
[~2023-10-18] VITALS: Ht 175.3 cm; Wt 65.8 kg
[~2023-10-18 16:49] MED LIST changes: +ALBU18HF2 IH; +AMLO5TAB88 PO; +ASPI-1406 PO; +ATOR10TA69 PO; +COR6 MT; +FERR-63 PO; +FERR325T30 PO; +FLUT1DIS3 INH; +FURO40TA5 MT; +FURO40TA5 PO; +GABA-532 PO; -IBUP-2029 MT; +LEVO-65 MT; +LOSA100T33 MT; +PANT40TA51 MT
[2023-10-18] MEDS: ACETAMINOPHEN 325MG TABLET PO ONE (17:31)
[2023-10-18] MEDS: MORPHINE SULFATE 4 MG/ML INJ (FOR IV/IM USE) IV ONE (18:08)
[2023-10-18 18:22] LABS: BASOPHILS % 1.9 % (0.0-2.0); DIFFERENTIAL COMMENT 0; EOSINOPHILS % 3.9 % (0.0-5.0); HEMATOCRIT. 40.9 % (42.0-52.0); HEMOGLOBIN. 12.2 g/dL (14.0-18.0); MEAN CORPUSCULAR HEMOGLOBIN 28.6 pg (28.0-32.0); MEAN CORPUSCULAR HGB CONC 29.9 g/dL (31.0-37.0); MEAN CORPUSCULAR VOLUME 95.6 fL (80.0-94.0); MONOCYTES % 8.7 % (2.0-8.0); NEUTROPHILS % 52.5 % (40.0-76.0); PLATELET 194 x1000/uL (130-400); RED BLOOD CELL COUNT 4.28 mill/uL (4.7-6.1); RED CELL DISTRIBUTION WIDTH 17.4 % (11.6-14.6); WHITE BLOOD COUNT 3.3 x1000/uL (4.5-11.0)
[2023-10-18 18:26] LABS: CHLORIDE 108 mEq/L (98-107); POTASSIUM 4.6 mEq/L (3.5-5.1); SODIUM 138 mEq/L (136-145)
[2023-10-18 18:27] LABS: CALCIUM 8.9 mg/dL (8.7-10.4); CARBON DIOXIDE 22 mEq/L (21-32)
[2023-10-18 18:32] LABS: GLUCOSE 73 mg/dL (70-105); UREA NITROGEN BLOOD 49 mg/dL (9-23)
[2023-10-18 18:34] LABS: ALANINE AMINOTRANSFERASE 32 IU/L (10-49); ASPARTATE AMINOTRANSFERASE 40 IU/L (<34); BILIRUBIN TOTAL 0.2 mg/dL (0.1-1.0); PROTEIN TOTAL 7.1 g/dL (6.0-8.3)
[2023-10-18 18:46] LABS: CREATININE 5.3 mg/dL (0.6-1.3); TROPONIN I HIGH SENSITIVITY 347 ng/L (3.0-53)
[2023-10-18 20:52] LABS: TROPONIN I HIGH SENSITIVITY 360 ng/L (3.0-53)
[2023-10-18 21:12] VITALS: PULSE 104; RESP 23
[2023-10-18] MEDS: IPRATROPIUM/ALBUTEROL 0.5-3(2.5)MG/3ML NEB HHN ONE (22:12)
[2023-10-18] MEDS ORDERED: ONDANSETRON HCL 4MG/2ML INJ IV PRN (23:00)
[2023-10-18] MEDS ORDERED: DOCUSATE SODIUM 100MG CAPSULE PO PRN (23:00)
[2023-10-18] MEDS ORDERED: NA PHOS,M-B/NA PHOS,DI-BA ENEMA 118ML PR PRN (23:00)
[2023-10-18] MEDS ORDERED: MORPHINE SULFATE 2 MG/ML INJ (NOT FOR IM USE) IV PRN (23:00)
[2023-10-18] MEDS ORDERED: IPRATROPIUM/ALBUTEROL 0.5-3(2.5)MG/3ML NEB HHN PRN (23:00)
[2023-10-18] MEDS ORDERED: GUAIFENESIN 200MG/10ML SUGAR FREE UDC PO PRN (23:00)
[2023-10-18] MEDS ORDERED: MAGNESIUM/ALUMINUM HYDROXIDE/SIMETHICONE 30ML UDC PO PRN (23:00)
[2023-10-18] MEDS ORDERED: CLONIDINE 0.1MG TABLET PO PRN (23:00)
[2023-10-18] MEDS ORDERED: ACETAMINOPHEN 325MG TABLET PO PRN (23:00)
[2023-10-18 23:33] LABS: PHOSPHORUS 4.3 mg/dL (2.5-4.9)
[2023-10-19] VITALS (12 sets, daily range): BP systolic 110–156; BP diastolic 70–110; PULSE 70–105; RESP 16–24; TEMP 36.44736–36.72516; O2SAT 92–98
[2023-10-19] MEDS: ACETAMINOPHEN 325MG TABLET PO PRN (00:20)
[2023-10-19] MEDS: FUROSEMIDE 40MG/4ML VIAL IV NR (00:20)
[2023-10-19] MEDS: HYDROCODONE/ACETAMINOPHEN 5/325MG TABLET PO PRN (00:29)
[2023-10-19] MEDS ORDERED: NALOXONE HCL 0.4MG/ML VIAL IV PRN (00:30)
[2023-10-19] MEDS: IPRATROPIUM/ALBUTEROL 0.5-3(2.5)MG/3ML NEB HHN SCH (01:18)
[2023-10-19 02:31] LABS: ALANINE AMINOTRANSFERASE 35 IU/L (10-49)
[2023-10-19 02:32] LABS: ALBUMIN 4.3 g/dL (3.2-4.8); ASPARTATE AMINOTRANSFERASE 45 IU/L (<34); BILIRUBIN TOTAL 0.2 mg/dL (0.1-1.0)
[2023-10-19 02:33] LABS: PROTEIN TOTAL 7.7 g/dL (6.0-8.3)
[2023-10-19 02:38] LABS: BILIRUBIN DIRECT < 0.1 mg/dL (<=3.0)
[2023-10-19 02:44] LABS: CREATINE KINASE MB FRACTION 29.4 ng/mL (0.5-3.6)
[2023-10-19] MEDS ORDERED: MORPHINE SULFATE 2 MG/ML INJ (NOT FOR IM USE) IV PRN (03:00)
[2023-10-19 03:21] LABS: *AMPHETAMINES SCREEN URINE NEGATIVE (NEGATIVE); *BARBITURATES SCREEN URINE NEGATIVE (NEGATIVE); *BENZODIAZEPINES SCREEN URINE NEGATIVE (NEGATIVE); *COCAINE SCREEN URINE PRESUMPTIVE POSITIVE (NEGATIVE); CANNABINOID URINE SCREEN NEGATIVE (NEGATIVE); CLARITY URINE CLEAR (CLEAR); COLOR URINE YELLOW (YELLOW); ECSTASY MDMA SCREEN URINE NEGATIVE (NEGATIVE); GLUCOSE URINE 1+ (NEGATIVE); KETONES URINE NEGATIVE (NEGATIVE); LEUKOCYTE ESTERASE URINE NEGATIVE (NEGATIVE); METHADONE URINE SCREEN NEGATIVE (NEGATIVE); NITRITE URINE NEGATIVE (NEGATIVE); OCCULT BLOOD URINE 1+ (NEGATIVE); OPIATES URINE SCREEN NEGATIVE (NEGATIVE); PHENCYCLIDINE URINE SCREEN NEGATIVE (NEGATIVE); PROTEIN URINE 4+ (NEGATIVE); SPECIFIC GRAVITY URINE 1.022 (1.005-1.030)
[2023-10-19] MEDS: GABAPENTIN 300MG CAPSULE PO SCH (05:57)
[2023-10-19 06:08] LABS: WBC URINE 0-2 /hpf (0-2)
[2023-10-19 06:09] LABS: BACTERIA URINE TRACE; SQUAMOUS EPITHELIAL CELL URINE FEW /lpf (RARE/1+)
[2023-10-19] MEDS: AMLODIPINE 5MG TABLET PO SCH (08:05)
[2023-10-19] MEDS: CARVEDILOL 6.25 MG TABLET PO SCH (08:06)
[2023-10-19] MEDS: LOSARTAN 100 MG TABLET PO SCH (08:06)
[2023-10-19] MEDS: ASPIRIN 81MG EC TABLET PO SCH (08:06)
[2023-10-19] MEDS: ENOXAPARIN 30MG/0.3ML SYR SUBCUT SCH (08:07)
[2023-10-19] MEDS: FUROSEMIDE 40MG/4ML VIAL IV SCH (08:07)
[2023-10-19 10:22] LABS: BASOPHILS % 2.5 % (0.0-2.0); DIFFERENTIAL COMMENT 0; EOSINOPHILS % 2.6 % (0.0-5.0); HEMATOCRIT. 36.5 % (42.0-52.0); HEMOGLOBIN. 11.1 g/dL (14.0-18.0); MEAN CORPUSCULAR HEMOGLOBIN 28.3 pg (28.0-32.0); MEAN CORPUSCULAR HGB CONC 30.3 g/dL (31.0-37.0); MEAN CORPUSCULAR VOLUME 93.3 fL (80.0-94.0); MEAN PLATELET VOLUME 8.9 fl (7.4-10.4); MONOCYTES % 7.8 % (2.0-8.0); NEUTROPHILS % 74.1 % (40.0-76.0); PLATELET 182 x1000/uL (130-400); RED BLOOD CELL COUNT 3.92 mill/uL (4.7-6.1); RED CELL DISTRIBUTION WIDTH 16.7 % (11.6-14.6); WHITE BLOOD COUNT 4.2 x1000/uL (4.5-11.0)
[2023-10-19 10:41] LABS: CALCIUM 8.1 mg/dL (8.7-10.4); POTASSIUM 4.8 mEq/L (3.5-5.1)
[2023-10-19 10:46] LABS: CREATINE KINASE MB FRACTION 21.4 ng/mL (0.5-3.6)
[2023-10-19 10:49] LABS: T4 FREE 0.92 ng/dL (0.89-1.76)
[2023-10-19 10:50] LABS: THYROID STIMULATING HORMONE 1.83 uIU/mL (0.55-4.78)
[2023-10-19 10:57] LABS: CREATININE 5.8 mg/dL (0.6-1.3)
[2023-10-19] MEDS: FAMOTIDINE 20MG TABLET PO SCH (22:00)
[2023-10-20] VITALS (16 sets, daily range): BP systolic 114–142; BP diastolic 64–93; PULSE 74–87; RESP 18–21; TEMP 36.16956–36.78072; O2SAT 95–100
[2023-10-20 05:32] LABS: CHLORIDE 108 mEq/L (98-107); POTASSIUM 5.2 mEq/L (3.5-5.1); SODIUM 138 mEq/L (136-145)
[2023-10-20 05:33] LABS: CARBON DIOXIDE 25 mEq/L (21-32)
[2023-10-20 05:38] LABS: CREATININE 4.8 mg/dL (0.6-1.3); GLUCOSE 152 mg/dL (70-105)
[2023-10-20 05:39] LABS: MEAN CORPUSCULAR HEMOGLOBIN 29.3 pg (28.0-32.0); MEAN CORPUSCULAR HGB CONC 32.3 g/dL (31.0-37.0); MEAN CORPUSCULAR VOLUME 90.5 fL (80.0-94.0); PLATELET 164 x1000/uL (130-400); RED BLOOD CELL COUNT 3.76 mill/uL (4.7-6.1); RED CELL DISTRIBUTION WIDTH 16.6 % (11.6-14.6); UREA NITROGEN BLOOD 41 mg/dL (9-23)
[2023-10-20 05:41] LABS: PHOSPHORUS 4.6 mg/dL (2.5-4.9)
[2023-10-21] VITALS (11 sets, daily range): BP systolic 110–129; BP diastolic 54–89; PULSE 74–86; RESP 18–20; TEMP 36.16956–36.6696; O2SAT 96–100
[2023-10-21 10:39] LABS: HEMATOCRIT 38.4 % (42.0-52.0); HEMOGLOBIN 11.9 g/dL (14.0-18.0); MEAN CORPUSCULAR HEMOGLOBIN 28.4 pg (28.0-32.0); MEAN CORPUSCULAR VOLUME 91.7 fL (80.0-94.0); PLATELET 180 x1000/uL (130-400); RED BLOOD CELL COUNT 4.18 mill/uL (4.7-6.1); RED CELL DISTRIBUTION WIDTH 17.2 % (11.6-14.6); WHITE BLOOD COUNT 3.3 x1000/uL (4.5-11.0)
[2023-10-21 10:52] LABS: CHLORIDE 106 mEq/L (98-107); POTASSIUM 5.7 mEq/L (3.5-5.1); SODIUM 137 mEq/L (136-145)
[2023-10-21 10:53] LABS: CALCIUM 8.2 mg/dL (8.7-10.4); CARBON DIOXIDE 23 mEq/L (21-32)
[2023-10-21 10:58] LABS: GLUCOSE 174 mg/dL (70-105); UREA NITROGEN BLOOD 53 mg/dL (9-23)
[2023-10-21] MEDS ORDERED: TRAM-534 PO (14:50)
[2023-10-22] MEDS ORDERED: FAMOTIDINE 20MG TABLET PO SCH (21:00)
== END 2023-10-21 19:42 | disposition home health service (06) | DRG 194 ==
LOC: ER 16:49 → EDBEDREQ 17:32 → EDBEDREQTM 20:49 → EDBEDREQ 20:49 → EDBEDREQSVC 20:56 → EDBEDREQ 20:56 → 8WST 23:19
PROVIDERS: ADMIT Internal Medicine; ATTEND Internal Medicine
PROC: 5A1D70Z Performance of Urinary Filtration, Intermittent, Less than 6 Hours Per Day (ICD-10-PCS; principal; 2023-10-19)
PROC: 5A1D70Z Performance of Urinary Filtration, Intermittent, Less than 6 Hours Per Day (ICD-10-PCS; 2023-10-20)
PROC: 5A1D70Z Performance of Urinary Filtration, Intermittent, Less than 6 Hours Per Day (ICD-10-PCS; 2023-10-21)
DX: I13.2 Hypertensive heart and chronic kidney disease with heart failure and with stage 5 chronic kidney disease, or end stage renal disease (principal); J96.20 Acute and chronic respiratory failure, unspecified whether with hypoxia or hypercapnia; I21.A1 Myocardial infarction type 2; D63.1 Anemia in chronic kidney disease; J44.0 Chronic obstructive pulmonary disease with (acute) lower respiratory infection; N18.6 End stage renal disease; I50.43 Acute on chronic combined systolic (congestive) and diastolic (congestive) heart failure; I42.9 Cardiomyopathy, unspecified; E11.22 Type 2 diabetes mellitus with diabetic chronic kidney disease; Z20.822 Contact with and (suspected) exposure to COVID-19; M94.0 Chondrocostal junction syndrome [Tietze]; J44.1 Chronic obstructive pulmonary disease with (acute) exacerbation; K74.60 Unspecified cirrhosis of liver; E78.5 Hyperlipidemia, unspecified; Z99.2 Dependence on renal dialysis; Z79.899 Other long term (current) drug therapy; Z79.4 Long term (current) use of insulin; Z79.51 Long term (current) use of inhaled steroids; Z99.81 Dependence on supplemental oxygen; W01.0XXA Fall on same level from slipping, tripping and stumbling without subsequent striking against object, initial encounter; Y93.89 Activity, other specified; Y92.89 Other specified places as the place of occurrence of the external cause; Y99.8 Other external cause status
CPT/HCPCS: 36415; 71045; 71250; 73502; 73562; 74176; 76604; 80048; 80053; 80076; 80305; 81003; 82550; 82553; 83735; 83880; 84100; 84145; 84439; 84443; 84484; 85025; 85027; 85379; 87426; 90935; 93005; 93970; 94640; 97162; 97166; 99285; J1650; J1940; J2270